=== PATIENT | female | born 1955 | race Caucasian/White ===

== ENCOUNTER 2024-03-31 06:07 | Day surgery (SDC) | payer MEDICARE ==
[2024-03-31] MEDS ORDERED: Propofol 200 MG/20 ML SDV IV ONE (06:08)
[2024-03-31] MEDS ORDERED: Lidocaine 1% 5 ML VIAL INJECT ONE (06:08)
[2024-03-31] MEDS ORDERED: Sodium Chloride 0.9% 10 ML Syringe FLUSH PRN (06:15)
[2024-03-31] MEDS: Lactated Ringers 1,000 ML IV SCH (07:04)
[2024-03-31] MEDS: Simethicone Drops 40 MG/0.6 ML 30 ML Bottle ONE (07:34)
== END 2024-03-31 09:45 | disposition home or self-care (01) ==
LOC: FB.SDS 06:07
PROVIDERS: ATTEND Surgery
DX: K57.30 Diverticulosis of large intestine without perforation or abscess without bleeding (principal); Z91.040 Latex allergy status
CPT/HCPCS: 45378; A9270; J2704; J7120; 00811